=== PATIENT | female | born 1995 | race Caucasian/White ===

== ENCOUNTER 2016-09-27 13:38 | Emergency (ER) | payer OTHER ==
--- NOTE | 2016-09-27 15:01 | ER Document Report ---
ED Medical Screen (RME) - General Chief Complaint: Vaginal Bleeding Stated Complaint: VAGINAL BLEEDING Time Seen by Provider: 09/27/16 14:50 Mode of Arrival: Ambulatory Information source: Patient TRAVEL OUTSIDE OF THE [place] IN LAST 30 DAYS: No - HPI Onset: This morning Onset/Duration: Sudden Quality of pain: Cramping Severity: Mild Associated Symptoms: None Exacerbated by: Denies Notes: 09/27/16 15:00 Patient is a 20-year-old female who is 10 months . Patient is visiting from out of town. Patient had a normal menstrual period approximately 1 week to 10 days ago. Patient states she began having vaginal bleeding again this morning. Patient denies possibility of . Patient does not have any contraceptive device is in place. She has very mild abdominal cramping. Patient does not have prior history of abnormal vaginal bleeding. - Related Data Allergies/Adverse Reactions: Penicillins Allergy (Verified 09/27/16 14:43) Past Medical History - General Information source: Patient - Social History Chew tobacco use (# tins/day): No Frequency of alcohol use: None Drug Abuse: None Renal/ Medical History: Denies: Hx Peritoneal Dialysis Past Surgical History: Reports: Hx Orthopedic Surgery Review of Systems - Review of Systems Female Genitourinary: Vaginal bleeding -: Yes All other systems reviewed and negative Physical Exam - Vital signs Vitals: Temp Pulse Resp BP Pulse Ox 98.8 F 87 14 97/50 L 100 09/27/16 13:57 09/27/16 13:57 09/27/16 13:57 09/27/16 13:57 09/27/16 13:57 Interpretation: Normal - General General appearance: Appears well, Alert - Respiratory Respiratory status: No respiratory distress Chest status: Nontender Breath sounds: Normal Chest palpation: Normal - Cardiovascular Rhythm: Regular Heart sounds: Normal auscultation Murmur: No - Abdominal Inspection: Normal Distension: No distension Bowel sounds: Normal Tenderness: Nontender Organomegaly: No organomegaly - Extremities General upper extremity: Normal inspection, Nontender, Normal color, Normal ROM , Normal temperature General lower extremity: Normal inspection, Nontender, Normal color, Normal ROM , Normal temperature, Normal weight bearing. No: Slime's sign - Neurological Neuro grossly intact: Yes Cognition: Normal Orientation: AAOx4 Kiran Coma Scale Eye Opening: Spontaneous [place] Coma Scale Verbal: Oriented [place] Coma Scale Motor: Obeys Commands [place] Coma Scale Total: 15 Speech: Normal Motor strength normal: LUE, RUE, LLE, RLE Sensory: Normal - Skin Skin Temperature: Warm Skin Moisture: Dry Skin Color: Normal Course - Re-evaluation Re-evalutation: 09/27/16 15:45 Urine is negative. Will start on Provera pending patient following up with her [facility] doctor. Discussed need to avoid cigarette smoking. - Vital Signs Vital signs: Temp Pulse Resp BP Pulse Ox 98.8 F 87 14 97/50 L 100 09/27/16 13:57 09/27/16 13:57 09/27/16 13:57 09/27/16 13:57 09/27/16 13:57 - Laboratory Laboratory results interpreted by me: 09/27/16 15:08 Urine Blood LARGE H Doctor's Discharge - Discharge Clinical Impression: Dysfunctional uterine bleeding Disposition: HOME, SELF-CARE Instructions: Vaginal Bleeding ([facility]) Additional Instructions: Follow-up with your [facility] doctor as soon as you return home. Do not smoke cigarettes while taking hormone tablets. Return to the emergency department if worse or for any other problems. Prescriptions: Medroxyprogesterone Acetate [Provera] 10 mg PO TID #21 tablet
[2016-09-27 15:35] LABS: APPEARANCE,URINE CLEAR; BILIRUBIN,URINE NEGATIVE (NEGATIVE); GLUCOSE, URINE NEGATIVE (NEGATIVE); KETONES,URINE NEGATIVE (NEGATIVE); LEUKOCYTE ESTERASE,URINE NEGATIVE (NEGATIVE); NITRITE,URINE NEGATIVE (NEGATIVE); PROTEIN,URINE NEGATIVE (NEGATIVE); URINE SPECIFIC GRAVITY 1.012; UROBILINOGEN,URINE NEGATIVE mg/dL (<2.0)
[2016-09-27 15:55] VITALS: BP 100/56
== END 2016-09-27 15:55 | disposition home or self-care (01) ==
LOC: ER 13:38
DX: N93.8 Other specified abnormal uterine and vaginal bleeding (principal); Z88.0 Allergy status to penicillin
CPT/HCPCS: 81001; 81025; 99284